=== PATIENT | male | born 1990 ===

== ENCOUNTER 2017-08-13 00:21 | Day surgery (SDC) | payer OTHER ==
[~2017-08-13 00:21] MED LIST: Azasan100 MG PO; BENTYL20 MG PO; Cipro500 MG PO; Flagyl500 MG PO; Prednisone20 MG PO; Prilosec20 MG PO
[2017-08-13] MEDS ORDERED: PRED20 PO (08:20)
[2017-12-19] MEDS ORDERED: INFLECTRA100 MG IV (14:03)
[2017-12-19] MEDS ORDERED: Prednisone50 MG PO (14:03)
== END 2017-08-13 11:01 | disposition home or self-care (01) ==
LOC: ATC 00:21
DX: K50.90 Crohn's disease, unspecified, without complications (principal); K21.9 Gastro-esophageal reflux disease without esophagitis; F17.210 Nicotine dependence, cigarettes, uncomplicated
CPT/HCPCS: 96413; 96415; J7050; Q0163; Q5102-ZB

== ENCOUNTER 2017-09-01 00:09 | Day surgery (SDC) | payer OTHER ==
[~2017-09-01 00:09] MED LIST changes: +PRED20 PO
[2017-12-19] MEDS ORDERED: Prednisone50 MG PO (14:03)
[2017-12-19] MEDS ORDERED: INFLECTRA100 MG IV (14:03)
== END 2017-09-01 10:59 | disposition home or self-care (01) ==
LOC: ATC 00:09
DX: K50.90 Crohn's disease, unspecified, without complications (principal)
CPT/HCPCS: 96413; 96415; J1745; J7050; Q0163

== ENCOUNTER 2017-09-29 | Day surgery (SDC) | END 2017-09-29 11:07 | disposition home or self-care (01) ==

== ENCOUNTER 2019-08-20 14:32 | Emergency (ER) | payer OTHER ==
[~2019-08-20] VITALS: Ht 177.8 cm; Wt 104.3 kg
[~2019-08-20 14:32] MED LIST changes: +INFLECTRA100 MG IV; +Prednisone50 MG PO
[2019-08-20 15:17] LABS: BASOPHILS ABSOLUTE AUTO 0.04 K/mm3 (0.00-0.23); BASOPHILS PERCENT AUTO 1 % (0-2); EOSINOPHILS ABSOLUTE AUTO 0.32 K/mm3 (0.00-0.68); EOSINOPHILS PERCENT AUTO 4 % (0-6); Hematocrit 47.1 % (37.0-53.0); Hemoglobin 15.8 g/dL (13.5-17.5); IMMATURE GRAN ABSOLUTE AUTO 0.01 K/mm3 (0.00-0.10); IMMATURE GRAN PERCENT AUTO 0 % (0-1); LYMPHOCYTES ABSOLUTE AUTO 2.41 K/mm3 (0.84-5.20); LYMPHOCYTES PERCENT AUTO 32 % (21-46); MONOCYTES ABSOLUTE AUTO 0.75 K/mm3 (0.16-1.47); MONOCYTES PERCENT AUTO 10 % (4-13); Mean Corpuscular HGB 29.8 pg (26.0-34.0); Mean Corpuscular HGB Conc 33.5 g/dL (31.5-36.5); Mean Corpuscular Volume 89 fL (80-100); Mean Platelet Volume 9.6 fL (9.1-12.4); NEUTROPHILS ABSOLUTE AUTO 3.98 K/mm3 (1.96-9.15); NEUTROPHILS PERCENT AUTO 53 % (41-73); Platelet Count 215 K/mm3 (150-400); RDW Coefficient Variation 11.8 % (11.7-14.2); RDW Standard Deviation 38.3 fL (35.1-46.3); White Blood Cell Count 7.51 K/mm3 (4.00-11.30)
[2019-08-20 15:31] LABS: Alanine Aminotransfer (ALT/SGP 80 U/L (12-78); Albumin, Blood 3.8 g/dL (3.4-5.0); Alk Phos 89 U/L (50-136); Anion Gap 6 mmol/L (6-16); Aspartate Aminotrans (AST/SGOT 33 U/L (12-37); Bilirubin, Total 0.5 mg/dL (0.1-1.0); Blood Urea Nitrogen 7 mg/dL (8-24); Bun/Creatinine Ratio 7.9 (12.0-20.0); CO2, Blood 23 mmol/L (21-32); Chloride, Blood 111 mmol/L (98-108); Creatinine, Blood 0.89 mg/dL (0.60-1.20); Globulin, Blood 3.8 g/dL (2.2-4.0); Glomerular Filtration Rate >60 (60-); Glucose, Blood 94 mg/dL (70-99); Potassium, Blood 3.6 mmol/L (3.5-5.5); Sodium, Blood 140 mmol/L (136-145); Total Protein, Blood 7.6 g/dL (6.4-8.2)
[2019-08-20 15:50] LABS: Source, Urine Clean Catch
[2019-08-20 15:53] LABS: Bilirubin, Urine Neg (Neg); Blood, Urine Neg (Neg); Glucose Qualitative, Urine Neg (Neg); Ketones, Urine 1+ (Neg); Leukocyte Esterase, Urine 1+ (Neg); Nitrite, Urine Neg (Neg); Protein, Urine 1+ (Neg); Specific Gravity, Urine 1.025 (1.003-1.022); Urobilinogen, Urine NORM (Normal)
[2019-08-20 16:30] LABS: Color, Urine Yellow (P-Yellow)
[2019-08-20 16:33] LABS: Appearance, Urine Clear (Clear)
[2019-08-20 16:35] LABS: Bacteria Few /hpf; Mucus Heavy (0-Heavy); Red Blood Cells, Urine 0-2 /hpf (0-2); Squamous Epithelial Cells Few /hpf (Few)
[2019-08-20] MEDS ORDERED: Prednisone50 MG PO (17:34)
== END 2019-08-20 18:04 | disposition home or self-care (01) ==
LOC: ER 14:32
PROVIDERS: Physician Assistant
DX: K50.90 Crohn's disease, unspecified, without complications (principal); Z87.891 Personal history of nicotine dependence; Z79.52 Long term (current) use of systemic steroids
CPT/HCPCS: 36415; 74018; 80053; 81001; 83690; 85025; 87086; 99284-25; J7512

== ENCOUNTER 2019-08-30 16:58 | Emergency (ER) | payer OTHER ==
[~2019-08-30] VITALS: Ht 180.3 cm; Wt 104.3 kg
[2019-08-30 17:39] LABS: BASOPHILS ABSOLUTE AUTO 0.04 K/mm3 (0.00-0.23); BASOPHILS PERCENT AUTO 0 % (0-2); EOSINOPHILS PERCENT AUTO 2 % (0-6); Hematocrit 47.9 % (37.0-53.0); Hemoglobin 16.4 g/dL (13.5-17.5); IMMATURE GRAN ABSOLUTE AUTO 0.05 K/mm3 (0.00-0.10); IMMATURE GRAN PERCENT AUTO 0 % (0-1); LYMPHOCYTES ABSOLUTE AUTO 2.16 K/mm3 (0.84-5.20); LYMPHOCYTES PERCENT AUTO 19 % (21-46); MONOCYTES PERCENT AUTO 8 % (4-13); Mean Corpuscular HGB 30.4 pg (26.0-34.0); Mean Corpuscular HGB Conc 34.2 g/dL (31.5-36.5); Mean Corpuscular Volume 89 fL (80-100); Mean Platelet Volume 9.6 fL (9.1-12.4); NEUTROPHILS ABSOLUTE AUTO 8.08 K/mm3 (1.96-9.15); NEUTROPHILS PERCENT AUTO 71 % (41-73); Platelet Count 209 K/mm3 (150-400); RDW Standard Deviation 39.2 fL (35.1-46.3); White Blood Cell Count 11.43 K/mm3 (4.00-11.30)
[2019-08-30 18:03] LABS: Alanine Aminotransfer (ALT/SGP 91 U/L (12-78); Albumin, Blood 4.1 g/dL (3.4-5.0); Albumin/Globulin Ratio 1.1 (0.8-1.8); Alk Phos 90 U/L (50-136); Anion Gap 5 mmol/L (6-16); Aspartate Aminotrans (AST/SGOT 32 U/L (12-37); Bilirubin, Total 0.4 mg/dL (0.1-1.0); Blood Urea Nitrogen 11 mg/dL (8-24); Bun/Creatinine Ratio 11.8 (12.0-20.0); CO2, Blood 25 mmol/L (21-32); Chloride, Blood 110 mmol/L (98-108); Creatinine, Blood 0.93 mg/dL (0.60-1.20); Globulin, Blood 3.6 g/dL (2.2-4.0); Glomerular Filtration Rate >60 (60-); Glucose, Blood 79 mg/dL (70-99); Potassium, Blood 3.6 mmol/L (3.5-5.5); Sodium, Blood 140 mmol/L (136-145); Total Protein, Blood 7.7 g/dL (6.4-8.2)
[2019-08-30] MEDS ORDERED: Prednisone50 MG PO (19:28)
[2019-08-30] MEDS ORDERED: Protonix40 MG PO (19:28)
== END 2019-08-30 19:42 | disposition home or self-care (01) ==
LOC: ER 16:58
PROVIDERS: Physician Assistant
DX: K50.90 Crohn's disease, unspecified, without complications (principal); Z79.52 Long term (current) use of systemic steroids; Z79.899 Other long term (current) drug therapy; Z87.891 Personal history of nicotine dependence
CPT/HCPCS: 36415; 80053; 83690; 85025; 99284; J7512

== ENCOUNTER 2019-09-09 11:59 | Emergency (ER) | payer OTHER ==
[~2019-09-09] VITALS: Ht 177.8 cm; Wt 104.3 kg
[~2019-09-09 11:59] MED LIST changes: +Protonix40 MG PO
[2019-09-09 15:20] LABS: BASOPHILS ABSOLUTE AUTO 0.03 K/mm3 (0.00-0.23); BASOPHILS PERCENT AUTO 0 % (0-2); EOSINOPHILS ABSOLUTE AUTO 0.32 K/mm3 (0.00-0.68); EOSINOPHILS PERCENT AUTO 4 % (0-6); Hematocrit 48.4 % (37.0-53.0); Hemoglobin 15.9 g/dL (13.5-17.5); IMMATURE GRAN ABSOLUTE AUTO 0.01 K/mm3 (0.00-0.10); IMMATURE GRAN PERCENT AUTO 0 % (0-1); LYMPHOCYTES ABSOLUTE AUTO 2.34 K/mm3 (0.84-5.20); LYMPHOCYTES PERCENT AUTO 29 % (21-46); MONOCYTES ABSOLUTE AUTO 0.65 K/mm3 (0.16-1.47); MONOCYTES PERCENT AUTO 8 % (4-13); Mean Corpuscular HGB 29.8 pg (26.0-34.0); Mean Corpuscular HGB Conc 32.9 g/dL (31.5-36.5); Mean Corpuscular Volume 91 fL (80-100); NEUTROPHILS PERCENT AUTO 58 % (41-73); Platelet Count 199 K/mm3 (150-400); RDW Coefficient Variation 12.2 % (11.7-14.2); RDW Standard Deviation 40.2 fL (35.1-46.3); Red Blood Cell Count 5.34 M/mm3 (4.30-5.90); White Blood Cell Count 8.05 K/mm3 (4.00-11.30)
[2019-09-09 15:36] LABS: Alanine Aminotransfer (ALT/SGP 84 U/L (12-78); Albumin, Blood 3.5 g/dL (3.4-5.0); Albumin/Globulin Ratio 0.9 (0.8-1.8); Alk Phos 93 U/L (50-136); Anion Gap 4 mmol/L (6-16); Aspartate Aminotrans (AST/SGOT 28 U/L (12-37); Bilirubin, Total 0.3 mg/dL (0.1-1.0); Blood Urea Nitrogen 9 mg/dL (8-24); Bun/Creatinine Ratio 10.5 (12.0-20.0); CO2, Blood 28 mmol/L (21-32); Chloride, Blood 107 mmol/L (98-108); Creatinine, Blood 0.86 mg/dL (0.60-1.20); Globulin, Blood 3.7 g/dL (2.2-4.0); Glomerular Filtration Rate >60 (60-); Glucose, Blood 76 mg/dL (70-99); Potassium, Blood 4.1 mmol/L (3.5-5.5); Sodium, Blood 139 mmol/L (136-145); Total Protein, Blood 7.2 g/dL (6.4-8.2)
[2019-09-09] MEDS ORDERED: Prednisone20 MG PO (15:45)
[2019-09-09] MEDS ORDERED: Protonix40 MG PO (15:45)
== END 2019-09-09 16:01 | disposition home or self-care (01) ==
LOC: ER 11:59
PROVIDERS: Physician Assistant
DX: K50.90 Crohn's disease, unspecified, without complications (principal); Z79.52 Long term (current) use of systemic steroids
CPT/HCPCS: 36415; 80053; 85025; 99284; J7512

== ENCOUNTER 2021-04-12 20:55 | Emergency (ER) | payer OTHER ==
[~2021-04-12] VITALS: Ht 177.8 cm; Wt 74.8 kg
== END 2021-04-12 21:33 | disposition home or self-care (01) ==
LOC: ER 20:55
DX: K08.89 Other specified disorders of teeth and supporting structures (principal); K03.81 Cracked tooth; F17.290 Nicotine dependence, other tobacco product, uncomplicated
CPT/HCPCS: 99282; A9270

== ENCOUNTER 2021-09-23 21:52 | Emergency (ER) | payer OTHER ==
[~2021-09-23] VITALS: Ht 180.3 cm; Wt 74.8 kg
== END 2021-09-23 22:32 | disposition home or self-care (01) ==
LOC: ER 21:52
DX: K08.89 Other specified disorders of teeth and supporting structures (principal)
CPT/HCPCS: 64400; 99282-25

== ENCOUNTER 2022-12-23 22:23 | Emergency (ER) | payer OTHER ==
[~2022-12-23] VITALS: Ht 177.8 cm; Wt 79.4 kg
[~2022-12-23 22:23] MED LIST changes: +Amoxicillin500 MG PO; +Cleocin HCl150 MG PO; +IBU800 MG PO
[2022-12-23 22:51] LABS: BASOPHILS ABSOLUTE AUTO 0.05 K/mm3 (0.00-0.23); BASOPHILS PERCENT AUTO 1 % (0-2); EOSINOPHILS PERCENT AUTO 4 % (0-6); Hematocrit 43.5 % (37.0-53.0); Hemoglobin 14.8 g/dL (13.5-17.5); IMMATURE GRAN ABSOLUTE AUTO 0.01 K/mm3 (0.00-0.10); IMMATURE GRAN PERCENT AUTO 0 % (0-1); LYMPHOCYTES ABSOLUTE AUTO 2.56 K/mm3 (0.84-5.20); LYMPHOCYTES PERCENT AUTO 34 % (21-46); MONOCYTES ABSOLUTE AUTO 0.67 K/mm3 (0.16-1.47); MONOCYTES PERCENT AUTO 9 % (4-13); Mean Corpuscular HGB 29.3 pg (26.0-34.0); Mean Corpuscular Volume 86 fL (80-100); Mean Platelet Volume 9.8 fL (9.1-12.4); NEUTROPHILS ABSOLUTE AUTO 4.01 K/mm3 (1.96-9.15); NEUTROPHILS PERCENT AUTO 53 % (41-73); Platelet Count 212 K/mm3 (150-400); RDW Coefficient Variation 12.6 % (11.7-14.2); RDW Standard Deviation 39.4 fL (35.1-46.3); Red Blood Cell Count 5.05 M/mm3 (4.30-5.90)
[2022-12-23 23:16] LABS: Albumin, Blood 3.6 g/dL (3.4-5.0); Albumin/Globulin Ratio 1.1 (0.8-1.8); Bilirubin, Total 0.3 mg/dL (0.1-1.0); Bun/Creatinine Ratio 17.9 (12.0-20.0); Calcium, Blood 8.7 mg/dL (8.5-10.1); Creatinine, Blood 0.89 mg/dL (0.60-1.20); Globulin, Blood 3.4 g/dL (2.2-4.0); Potassium, Blood 3.5 mmol/L (3.5-5.5)
[2022-12-24 00:27] LABS: Thyroid Stimulating Hormone 1.47 uIU/mL (0.360-4.800)
[2022-12-24 01:08] VITALS: BP 127/81
[2022-12-25] MEDS ORDERED: Prednisone20 MG PO (14:50)
== END 2022-12-24 01:28 | disposition home or self-care (01) ==
LOC: ER 22:23
PROVIDERS: Student in an Organized Health Care Education/Training Program
DX: R00.2 Palpitations (principal)
CPT/HCPCS: 71046; 80053; 84443; 84484; 85025; 93005; 93010; A9270

== ENCOUNTER 2022-12-25 11:27 | Emergency (ER) | payer OTHER ==
[~2022-12-25] VITALS: Ht 177.8 cm; Wt 79.4 kg
[2022-12-25 11:59] LABS: BASOPHILS ABSOLUTE AUTO 0.05 K/mm3 (0.00-0.23); BASOPHILS PERCENT AUTO 1 % (0-2); EOSINOPHILS ABSOLUTE AUTO 0.12 K/mm3 (0.00-0.68); EOSINOPHILS PERCENT AUTO 2 % (0-6); Hematocrit 48.1 % (37.0-53.0); Hemoglobin 16.2 g/dL (13.5-17.5); IMMATURE GRAN ABSOLUTE AUTO 0.01 K/mm3 (0.00-0.10); IMMATURE GRAN PERCENT AUTO 0 % (0-1); LYMPHOCYTES PERCENT AUTO 13 % (21-46); MONOCYTES ABSOLUTE AUTO 0.39 K/mm3 (0.16-1.47); MONOCYTES PERCENT AUTO 5 % (4-13); Mean Corpuscular HGB 29.2 pg (26.0-34.0); Mean Corpuscular HGB Conc 33.7 g/dL (31.5-36.5); Mean Corpuscular Volume 87 fL (80-100); Mean Platelet Volume 9.9 fL (9.1-12.4); NEUTROPHILS ABSOLUTE AUTO 6.55 K/mm3 (1.96-9.15); NEUTROPHILS PERCENT AUTO 80 % (41-73); Platelet Count 219 K/mm3 (150-400); RDW Coefficient Variation 12.3 % (11.7-14.2); RDW Standard Deviation 39.3 fL (35.1-46.3); Red Blood Cell Count 5.54 M/mm3 (4.30-5.90); White Blood Cell Count 8.22 K/mm3 (4.00-11.30)
[2022-12-25 12:21] LABS: Albumin/Globulin Ratio 1.1 (0.8-1.8); Bilirubin, Total 0.7 mg/dL (0.1-1.0); Bun/Creatinine Ratio 14.3 (12.0-20.0); C-REACTIVE PROTEIN, EXT RANGE 0.757 mg/dL (0.000-0.300); Calcium, Blood 9.4 mg/dL (8.5-10.1); Creatinine, Blood 0.98 mg/dL (0.60-1.20); Globulin, Blood 3.8 g/dL (2.2-4.0); Potassium, Blood 3.6 mmol/L (3.5-5.5); Total Protein, Blood 7.8 g/dL (6.4-8.2)
[2022-12-25 14:50] VITALS: BP 136/78
[2022-12-25] MEDS ORDERED: Prednisone20 MG PO (14:50)
== END 2022-12-25 14:51 | disposition home or self-care (01) ==
LOC: ER 11:27
PROVIDERS: Physician Assistant
DX: K50.90 Crohn's disease, unspecified, without complications (principal)
CPT/HCPCS: 80053; 83690; 85025; 86140; J7512

== ENCOUNTER 2023-02-14 03:43 | Day surgery (SDC) | payer OTHER ==
[~2023-02-14 03:43] MED LIST changes: +HYDHCL25 PO; +ONDA4ODT MM
[2023-02-14 08:29] VITALS: BP 121/94
[2023-02-14] MEDS ORDERED: AZAT50 PO (08:56)
--- NOTE | 2023-02-14 08:56 | NUR ---
PT HAS BEEN ON REMICADE IN THE PAST FOR HIS CROHN'S DISEASE.
== END 2023-02-14 11:26 | disposition home or self-care (01) ==
LOC: ATC 03:43
DX: K50.00 Crohn's disease of small intestine without complications (principal)
CPT/HCPCS: 96413; 96415; J7050; Q5103

== ENCOUNTER 2023-04-11 01:52 | Day surgery (SDC) | payer OTHER ==
[~2023-04-11 01:52] MED LIST changes: +AZAT50 PO
[2023-04-11 08:35] VITALS: BP 130/90
[2023-04-11] MEDS ORDERED: INFLECTRA100 MG IV (08:38)
== END 2023-04-11 11:05 | disposition home or self-care (01) ==
LOC: ATC 01:52
DX: K50.00 Crohn's disease of small intestine without complications (principal)
CPT/HCPCS: 96413; 96415; J7050; Q5103

== ENCOUNTER 2023-06-10 05:48 | Day surgery (SDC) | payer OTHER ==
[2023-06-10 08:00] VITALS: BP 114/82
== END 2023-06-10 10:45 | disposition home or self-care (01) ==
LOC: ATC 05:48
DX: K50.00 Crohn's disease of small intestine without complications (principal)
CPT/HCPCS: 96413; 96415; J7050; Q5103

== ENCOUNTER 2023-09-04 01:33 | Day surgery (SDC) | payer OTHER ==
[2023-09-04 13:52] VITALS: BP 139/90
== END 2023-09-04 16:36 | disposition home or self-care (01) ==
LOC: ATC 01:33
DX: K50.00 Crohn's disease of small intestine without complications (principal); F17.210 Nicotine dependence, cigarettes, uncomplicated
CPT/HCPCS: 96413; 96415; J7050; Q5103

== ENCOUNTER 2024-04-02 01:23 | Day surgery (SDC) | payer OTHER ==
[~2024-04-02] VITALS: Wt 93.5 kg
[2024-04-02 07:55] VITALS: BP 123/77
[2024-04-02] MEDS ORDERED: INFLIXIMAB DYYB IV SCH (08:05)
[2024-04-02] MEDS ORDERED: NS IV SCH (08:05)
== END 2024-04-02 10:33 | disposition home or self-care (01) ==
LOC: ATC 01:23
DX: K50.00 Crohn's disease of small intestine without complications (principal)
CPT/HCPCS: 96413; 96415; J7050; Q5103

== ENCOUNTER 2024-05-27 03:21 | Day surgery (SDC) | payer OTHER ==
[~2024-05-27] VITALS: Wt 94.9 kg
[2024-05-27 07:42] VITALS: BP 149/93
[2024-05-27] MEDS ORDERED: Infliximab-DYYB 500 MG in NS 250 ML IV SCH (07:50)
== END 2024-05-27 10:26 | disposition home or self-care (01) ==
LOC: ATC 03:21
DX: K50.00 Crohn's disease of small intestine without complications (principal)
CPT/HCPCS: 96413; 96415; J7050; Q5103

== ENCOUNTER 2024-08-17 07:09 | Day surgery (SDC) | payer OTHER ==
[2024-08-17 07:53] VITALS: BP 127/90
[2024-08-17] MEDS ORDERED: Infliximab-DYYB 500 MG in NS 250 ML IV SCH (08:05)
== END 2024-08-17 10:58 | disposition home or self-care (01) ==
LOC: ATC 07:09
DX: K50.00 Crohn's disease of small intestine without complications (principal)
CPT/HCPCS: 96413; 96415; J7050; Q5103

== ENCOUNTER 2024-11-16 04:12 | Day surgery (SDC) | payer OTHER ==
[~2024-11-16] VITALS: Wt 102.4 kg
[2024-11-16 08:46] VITALS: BP 154/97
[2024-11-16] MEDS ORDERED: Infliximab-DYYB 500 MG in NS 250 ML IV SCH (08:55)
[2024-11-16 09:17] LABS: BASOPHILS ABSOLUTE AUTO 0.06 K/mm3 (0.00-0.23); BASOPHILS PERCENT AUTO 1 % (0-2); EOSINOPHILS ABSOLUTE AUTO 0.25 K/mm3 (0.00-0.68); EOSINOPHILS PERCENT AUTO 3 % (0-6); Hematocrit 48.9 % (37.0-53.0); Hemoglobin 16.8 g/dL (13.5-17.5); IMMATURE GRAN ABSOLUTE AUTO 0.01 K/mm3 (0.00-0.10); IMMATURE GRAN PERCENT AUTO 0 % (0-1); LYMPHOCYTES ABSOLUTE AUTO 2.61 K/mm3 (0.84-5.20); LYMPHOCYTES PERCENT AUTO 35 % (21-46); MONOCYTES ABSOLUTE AUTO 0.61 K/mm3 (0.16-1.47); MONOCYTES PERCENT AUTO 8 % (4-13); Mean Corpuscular HGB 30.4 pg (26.0-34.0); Mean Corpuscular HGB Conc 34.4 g/dL (31.5-36.5); Mean Corpuscular Volume 89 fL (80-100); Mean Platelet Volume 9.8 fL (9.1-12.4); NEUTROPHILS ABSOLUTE AUTO 3.87 K/mm3 (1.96-9.15); NEUTROPHILS PERCENT AUTO 52 % (41-73); Platelet Count 211 K/mm3 (150-400); RDW Standard Deviation 39.8 fL (35.1-46.3); Red Blood Cell Count 5.52 M/mm3 (4.30-5.90); White Blood Cell Count 7.41 K/mm3 (4.00-11.30)
[2024-11-16 09:50] LABS: Albumin, Blood 3.8 g/dL (3.4-5.0); Albumin/Globulin Ratio 1.1 (0.8-1.8); Bilirubin, Total 0.4 mg/dL (0.1-1.0); Bun/Creatinine Ratio 11.7 (12.0-20.0); Calcium, Blood 8.9 mg/dL (8.5-10.1); Creatinine, Blood 0.94 mg/dL (0.60-1.20); Globulin, Blood 3.6 g/dL (2.2-4.0); Potassium, Blood 3.7 mmol/L (3.5-5.5); Total Protein, Blood 7.4 g/dL (6.4-8.2)
[2024-11-16 11:16] VITALS: BP 139/93
--- NOTE | 2024-11-16 13:08 | NUR ---
PT EDUCATED REGARDING ELEVATED BP. PT ASYMPTOMATIC. PT PLANS TO TALK WITH PCP ABOUT BP.
== END 2024-11-16 11:19 | disposition home or self-care (01) ==
LOC: ATC 04:12
PROVIDERS: Student in an Organized Health Care Education/Training Program
DX: K50.00 Crohn's disease of small intestine without complications (principal)
CPT/HCPCS: 80053; 85025; 96413; 96415; J7050; Q5103

== ENCOUNTER 2024-11-16 19:13 | Emergency (ER) | payer OTHER ==
[~2024-11-16] VITALS: Ht 177.8 cm; Wt 90.7 kg
[2024-11-16 19:20] VITALS: BP 158/104
== END 2024-11-16 19:26 | disposition home or self-care (01) ==
LOC: ER 19:13
DX: I10 Essential (primary) hypertension (principal); F17.200 Nicotine dependence, unspecified, uncomplicated; Z79.899 Other long term (current) drug therapy
CPT/HCPCS: 99283

== ENCOUNTER 2025-03-09 08:15 | Day surgery (SDC) | payer OTHER ==
[~2025-03-09] VITALS: Wt 102.1 kg
[2025-03-09] MEDS ORDERED: Infliximab-DYYB 500 MG in NS 250 ML IV SCH (14:15)
[2025-03-09 14:26] VITALS: BP 137/91
[2025-03-09 14:40] LABS: BASOPHILS ABSOLUTE AUTO 0.04 K/mm3 (0.00-0.23); BASOPHILS PERCENT AUTO 1 % (0-2); EOSINOPHILS ABSOLUTE AUTO 0.07 K/mm3 (0.00-0.68); EOSINOPHILS PERCENT AUTO 1 % (0-6); Hematocrit 46.2 % (37.0-53.0); Hemoglobin 16.4 g/dL (13.5-17.5); IMMATURE GRAN ABSOLUTE AUTO 0.01 K/mm3 (0.00-0.10); IMMATURE GRAN PERCENT AUTO 0 % (0-1); LYMPHOCYTES ABSOLUTE AUTO 1.68 K/mm3 (0.84-5.20); LYMPHOCYTES PERCENT AUTO 34 % (21-46); MONOCYTES ABSOLUTE AUTO 0.62 K/mm3 (0.16-1.47); MONOCYTES PERCENT AUTO 12 % (4-13); Mean Corpuscular HGB Conc 35.5 g/dL (31.5-36.5); Mean Corpuscular Volume 89 fL (80-100); NEUTROPHILS ABSOLUTE AUTO 2.60 K/mm3 (1.96-9.15); NEUTROPHILS PERCENT AUTO 52 % (41-73); NRBC ABSOLUTE 0.00 K/mm3 (0.00-0.02); NRBC Auto 0.0 /100 WBC (0.0-0.2); Platelet Count 194 K/mm3 (150-400); RDW Coefficient Variation 12.4 % (11.7-14.2); RDW Standard Deviation 41.1 fL (35.1-46.3)
[2025-03-09 15:05] LABS: Alanine Aminotransfer (ALT/SGP 100.0 U/L (12-78); Albumin, Blood 3.8 g/dL (3.4-5.0); Albumin/Globulin Ratio 1.0 (0.8-1.8); Anion Gap 8.0 mmol/L (3-11); Aspartate Aminotrans (AST/SGOT 40.0 U/L (12-37); Bilirubin, Total 0.3 mg/dL (0.1-1.0); Blood Urea Nitrogen 10.0 mg/dL (8-24); CO2, Blood 28.0 mmol/L (21-32); Calcium, Blood 8.6 mg/dL (8.5-10.1); Chloride, Blood 108.0 mmol/L (98-108); Creatinine, Blood 1.03 mg/dL (0.60-1.20); Globulin, Blood 3.8 g/dL (2.2-4.0); Glucose, Blood 102.0 mg/dL (70-99); Potassium, Blood 3.5 mmol/L (3.5-5.5); Sodium, Blood 140.0 mmol/L (136-145); Total Protein, Blood 7.6 g/dL (6.4-8.2)
== END 2025-03-09 16:41 | disposition home or self-care (01) ==
LOC: ATC 08:15
PROVIDERS: Student in an Organized Health Care Education/Training Program
DX: K50.00 Crohn's disease of small intestine without complications (principal); F17.290 Nicotine dependence, other tobacco product, uncomplicated
CPT/HCPCS: 80053; 85025; 96413; 96415; J7050; Q5103

== ENCOUNTER 2025-05-04 01:00 | Day surgery (SDC) | payer OTHER ==
[2025-05-04 09:03] VITALS: BP 144/93
[2025-05-04] MEDS ORDERED: Infliximab-DYYB 500 MG in NS 250 ML IV SCH (09:15)
== END 2025-05-04 11:35 | disposition home or self-care (01) ==
LOC: ATC 01:00
DX: K50.00 Crohn's disease of small intestine without complications (principal)
CPT/HCPCS: 96413; 96415; J7050; Q5103

== ENCOUNTER 2025-07-06 00:41 | Day surgery (SDC) | payer OTHER ==
[2025-07-06 09:00] VITALS: BP 139/96
[2025-07-06] MEDS ORDERED: Infliximab-DYYB 500 MG in NS 250 ML IV SCH (09:05)
== END 2025-07-06 11:26 | disposition home or self-care (01) ==
LOC: ATC 00:41
DX: K50.00 Crohn's disease of small intestine without complications (principal); M81.0 Age-related osteoporosis without current pathological fracture
CPT/HCPCS: 96413; 96415; J7050; Q5103